=== PATIENT | male | born 1945 | race Caucasian/White ===

== ENCOUNTER 2017-03-12 12:34 | Inpatient (IN) | payer OTHER ==
[2017-03-12 12:34] VITALS: BMI 34.7
[2017-03-12 13:21] LABS: BASO % 0.8 % (0.0-2.0); EOS % 0.6 % (0.0-4.0); HEMATOCRIT 46.4 % (35.0-51.0); LYMPH # 1.3 K/uL (1.0-4.3); LYMPH % 23.8 % (20.0-40.0); MEAN CELL VOLUME 91.9 fL (80.0-94.0); MEAN CORPUSCULAR HEMOGLOBIN 30.8 pg (27.0-31.0); MEAN CORPUSCULAR HGB CONC 33.5 g/dL (33.0-37.0); MONO # 0.5 K/uL (0.0-0.8); MONO % 9.8 % (0.0-10.0); NRBC % 0.1 % (0.0-2.0); RED CELL DISTRIBUTION WIDTH 13.7 % (11.5-14.5); WHITE BLOOD COUNT 5.3 K/uL (4.8-10.8)
--- NOTE | 2017-03-12 13:27 | C.PDOC ---
History Of Present Illness 71 year old male presents to the ED with complaints of "feeling off balance," states he has difficulty ambulating and decreased hearing in the right ear, numbness and tingling in the right arm, pain in the neck and upper back for approx one month. Patient denies facial droop, slurred speech, extremity weakness, SOB, chest pain, palpations, or visual changes. Patient swims regularly at a pool, and states he was recently treated for otitis externa. Time Seen by Provider: 03/12/17 12:48 Chief Complaint (Nursing): Lower Extremity Problem/Injury History Per: Patient History/Exam Limitations: no limitations Onset/Duration Of Symptoms: Persistent (1 month ) Current Symptoms Are (Timing): Still Present Severity: Moderate Recent travel outside of the [place]: No Past Medical History Reviewed: Historical Data, Nursing Documentation, Vital Signs Vital Signs: Last Vital Signs Temp 98 F 03/14/17 15:42 Pulse 76 03/14/17 15:42 Resp 20 03/14/17 15:42 BP 150/70 03/14/17 15:42 Pulse Ox 100 03/14/17 15:42 - Medical History PMH: Arthritis (MILD ARTHRITIS), Benign Prostatic Hyperplasia, Gall Bladder Disease (CHOLELIATHIASIS), HTN, Kidney Stones Surgical History: Cholecystectomy, Tonsillectomy - [facility] Procedures CONTROL POSTOP PROST HEM (06/23/13) CYSTOGRAM NEC (06/23/13) CYSTOSCOPY NEC (06/23/13) INCISION OF PROSTATE (10/28/14) INSERT INDWELLING CATH (06/08/13) LAPAROSCOPIC CHOLECYSTECTOMY (07/25/14) OTHER LAPAROSCOPIC UMBILICAL HERNIORRHAPHY (07/25/14) OTHER SUPRAPUBIC CYSTOSTOMY (06/28/13) PACKED CELL TRANSFUSION (06/28/13) RETROGRADE PYELOGRAM (10/28/14) SUPRAPUBIC PROSTATECTOMY (06/28/13) TU BLADDER CLEARANCE (06/23/13) Family History: States: No Known Family Hx - Social History Hx Tobacco Use: No Hx Alcohol Use: No Hx Substance Use: No - Immunization History Hx Tetanus Toxoid Vaccination: No Hx Influenza Vaccination: No Hx Pneumococcal Vaccination: No Review Of Systems Except As Marked, All Systems Reviewed And Found Negative. Constitutional: Positive for: Other (feels off balance and difficulty ambulating ). Negative for: Fever, Chills Eyes: Negative for: Vision Change ENT: Positive for: Other (decreased hearing in the right ear ) Cardiovascular: Negative for: Chest Pain, Palpitations Respiratory: Negative for: Cough, Shortness of Breath Gastrointestinal: Negative for: Nausea, Vomiting, Abdominal Pain Genitourinary: Negative for: Dysuria Musculoskeletal: Positive for: Neck Pain, Back Pain (upper back pain ) Neurological: Positive for: Numbness (and tingling in the right arm ). Negative for: Weakness (no weakness of the extremities ), Altered Mental Status , Headache Physical Exam - Physical Exam Appears: Well, Non-toxic, No Acute Distress Skin: Warm, Dry Head: Atraumatic, Normacephalic Eye(s): bilateral: Normal Inspection (no nystagmus), PERRL, EOMI Ear(s): Left: Normal, Right: Other (White exudate in the canal. No swelling or erythema. no mastoid TTP) Nose: Normal Oral Mucosa: Moist Throat: Normal, No Erythema, No Exudate, No Drooling Neck: Midline Cervical Tenderness (lower midline cervical tenderness at approx C6-T2 ) Chest: Symmetrical, No Deformity Cardiovascular: Rhythm Regular, No Murmur Respiratory: Normal Breath Sounds, No Rales, No Rhonchi, No Wheezing Gastrointestinal/Abdominal: Normal Exam, Bowel Sounds, Soft, No Tenderness Back: Vertebral Tenderness (thoracic tenderness from approx C6-T2) Extremity: No Tenderness, No Calf Tenderness, Capillary Refill (< 2 sec all digits ), No Deformity, No Swelling Extremity: Bilateral: Atraumatic, Normal ROM Neurological/Psych: Oriented x3, Normal Speech, Normal Cognition, Normal Cranial Nerves, No Cerebellar Signs, Normal Motor, No Normal Sensation ( subjectively decreased sensation in the right hand and arm ), No Dysarthria, No Romberg Gait: Unsteady (ataxia) ED Course And Treatment - Laboratory Results Result Diagrams: 03/13/17 07:30 03/13/17 07:30 ECG: Interpreted By Me, Viewed By Me ECG Rhythm: Sinus Rhythm ECG Interpretation: Abnormal Interpretation Of ECG: Left axis deviation. T-wave inversion at II, III, AVL , AVF, V2-V6. No ST-T wave changes. Rate From EC (bpm) O2 Sat by Pulse Oximetry: 98 (room air ) Pulse Ox Interpretation: Normal - CT Scan/US Head CT W/O contrast Other Rad Studies (CT/US): Read By Radiologist, Radiology Report Reviewed CT/US Interpretation: FINDINGS: HEMORRHAGE: No intracranial hemorrhage. BRAIN : No mass effect or edema. No significant atrophy. Patchy and confluent deep white matter lucency with mild periventricular white matter lucency consistent with age-related microvascular ischemic change. No evidence of acute infarct. VENTRICLES: Unremarkable. No hydrocephalus. CALVARIUM: Unremarkable. PARANASAL SINUSES: Mild chronic bilateral maxillary sinusitis. MASTOID AIR CELLS: Nonspecific left mastoid effusion. OTHER FINDINGS: None. IMPRESSION: No intracranial mass, hemorrhage or evidence of acute infarct. Chronic white matter ischemic change. Nonspecific left mastoid effusion. Progress Note: Blood work, EKG, Head CT ordered and reviewed. Patient was given PO Tylenol and Flexeril. CT head (-) - PO ASA given for possible CVA. MRI of brain ordered to evaluate for posterior CVA vs mastoiditis. Ofloxacin drops ordered for mild otitis externa, and IV zosyn ordered to cover for possible mastoiditis. - Physician Consult Information Physician Contacted: Shreya Sabillon Outcome Of Conversation: Discussed patent with hospitalist, agrees with admission for ataxia, mastoiditis. Dr. Soares consult entered for ENT. NIHSS Stroke Scale - Date/Time Evaluation Performed Date Performed: 03/12/17 Time Performed: 12:47 When Was NIHSS Performed: Baseline - How Severe is the Stoke Level of Consciousness: 0=Alert LOC to Questions: 1=One correct LOC to commands: 0=Obeys both correctly Best Gaze: 0=Normal Visual: 0=No visual loss Facial: 0=Normal Motor Arm - Left: 0=No drift Motor Arm - Right: 0=No drift Motor Leg - Left: 0=No drift Motor Leg - Right: 0=No drift Limb Ataxia: 1=Present Upper or Lower Sensory: 1=Mild to moderate loss (RUE) Best Language: 0=No aphasia Dysarthia: 0=Normal articulation Extinction & Inattention (Neglect): 0=Normal, no object Score: 3 Severity Of Stroke: 1-4= Minor Stroke rTPA Inclusion/Exclusion - Refusal of Treatment Patient Refused Treatment: No - Inclusion Criteria for Altepase Patient is 18 years or Older: Yes The Clinical Diagnosis of Ischemic Stroke That is Causing a Potentially Disabling Neurological Deficit: Yes Time of Onset is Well Established to be Less Than 270 Minute Before Treatment Would Begin: No Risk/Benefit Discussed With Patient/Family Member Present: No Medical Decision Making Medical Decision Making: differential diagnoses considered: CVA/TIA, mastoiditis, demyelinating disease, NPH, brain malignancy/CA, medication side effect, substance abuse Disposition - Disposition Disposition: HOSPITALIZED Disposition Time: 15:53 Condition: STABLE - Clinical Impression Clinical Impression: Mastoiditis, Ataxia - Scribe Statement The provider has reviewed the documentation as recorded by the Lavern Ness All medical record entries made by the Lavern were at my direction and personally dictated by me. I have reviewed the chart and agree that the record accurately reflects my personal performance of the history, physical exam, medical decision making, and the department course for this patient. I have also personally directed, reviewed, and agree with the discharge instructions and disposition.
[2017-03-12 13:29] LABS: CHLORIDE 106 mmol/L (98-107); SODIUM 142 mmol/L (132-148)
[2017-03-12 13:30] LABS: INR 1.1
[2017-03-12 13:31] LABS: CHOLESTEROL 142 mg/dL (0-199); GFR AFRICAN-AMERICAN > 60
[2017-03-12 13:32] LABS: ALB/GLOB RATIO 1.1 (1.0-2.1); ALKALINE PHOSPHATASE 80 U/L (38-126); ALT/SGPT 36 U/L (21-72); AST/SGOT 28 U/L (17-59); BILIRUBIN,TOTAL 0.7 mg/dL (0.2-1.3); BLOOD UREA NITROGEN 18 mg/dL (9-20); CALCIUM 10.1 mg/dl (8.6-10.4); CARBON DIOXIDE 27 mmol/L (22-30); GLUCOSE,RANDOM 102 mg/dL (75-110); TOTAL PROTEIN 6.9 g/dL (6.3-8.3)
--- NOTE | 2017-03-12 13:45 | CT ---
PROCEDURE: CT HEAD WITHOUT CONTRAST. HISTORY: ATAXIA, R/O CVA COMPARISON: None available. TECHNIQUE: Axial computed tomography images were obtained through the head/brain without intravenous contrast. Radiation dose: Total exam DLP = 1104.57 mGy-cm. This CT exam was performed using one or more of the following dose reduction techniques: Automated exposure control, adjustment of the mA and/or kV according to patient size, and/or use of iterative reconstruction technique. FINDINGS: HEMORRHAGE: No intracranial hemorrhage. BRAIN: No mass effect or edema. No significant atrophy. Patchy and confluent deep white matter lucency with mild periventricular white matter lucency consistent with age-related microvascular ischemic change. No evidence of acute infarct. VENTRICLES: Unremarkable. No hydrocephalus. CALVARIUM: Unremarkable. PARANASAL SINUSES: Mild chronic bilateral maxillary sinusitis. MASTOID AIR CELLS: Nonspecific left mastoid effusion. OTHER FINDINGS: None. IMPRESSION: No intracranial mass, hemorrhage or evidence of acute infarct. Chronic white matter ischemic change. Nonspecific left mastoid effusion.
--- NOTE | 2017-03-12 13:52 | RAD ---
HISTORY: POSSIBLE ADMISSION COMPARISON: 07/01/2014 FINDINGS: LUNGS: No infiltrate. Multiple calcified granulomata in left apex. PLEURA: No significant pleural effusion identified, no pneumothorax apparent. CARDIOVASCULAR: Normal. OSSEOUS STRUCTURES: No significant abnormalities. VISUALIZED UPPER ABDOMEN: Normal. OTHER FINDINGS: None. IMPRESSION: No acute infiltrate. Old granulomatous disease.
--- NOTE | 2017-03-12 15:38 | MRI ---
PROCEDURE: MRI BRAIN WITHOUT CONTRAST HISTORY: ataxia, r/o CVA COMPARISON: Comparison is made to the previous same-day CT of the head without contrast TECHNIQUE: Multiplanar, multisequence MR images of the brain were obtained without intravenous contrast enhancement. FINDINGS: HEMORRHAGE: None DWI: No evidence of an acute or early subacute infarction. BRAIN PARENCHYMA: No mass effect or edema. Mild atrophy. [id number] white matter changes suggestive but nonspecific for chronic microvascular ischemic disease. VENTRICLES: Unremarkable. No hydrocephalus. CRANIUM: Unremarkable. ORBITS: Grossly unremarkable. PARANASAL SINUSES/MASTOIDS: Bilateral mastoid effusion in noted suspicious for mastoiditis. Mild sinuses mucosal thickening. VASCULAR SYSTEM: Skull base flow voids intact. OTHER FINDINGS: None. IMPRESSION: No evidence of acute or subacute infarction. No evidence of intracranial hemorrhage mass lesion mass effect or midline shift. Mild atrophy [id number] chronic microvascular white matter ischemic changes. Bilateral mastoid effusion. Correlate clinically for mastoiditis.
[2017-03-12] MEDS ORDERED: Ofloxacin 0.3% Otic Soln AU STA (15:51)
[2017-03-12] MEDS ORDERED: Piperacillin/Tazobact 3.375 gm 100 ML IV STA (15:53)
[2017-03-12] MEDS ORDERED: Piperacillin/Tazobact 3.375 gm 100 ML IVPB ONE (16:05)
--- NOTE | 2017-03-12 17:31 | CP.PCM.HP ---
History of Present Illness - History of Present Illness History of Present Illness: This is a 71 yo male with past medical hx of HTN and BPH presenting with weakness on right side x 2 weeks. Patient has been experiencing numbness and weakness on right arm and right leg for past 2 weeks. This has never happened before. It was getting worse. Patient also began feeling problems with gait and walking today. He felt like he was losing his balance and he almost fell today, but he was able to steady himself. He denies urinary incontinence. He reports neck pain. He denies slurring of speech. He denies chest pain, fevers, chills, vomiting, diarrhea. He does not see a PMD. PMH: HTN, BPH PSH: cholecystectomy, sx to eye allergies: NKDA FH: HTN Meds: naproxen, lisinopril Social hx: No smoking. Social drinker. No drugs. Born in [place]. Present on Admission - Present on Admission Any Indicators Present on Admission: No History of DVT/PE: No History of Uncontrolled Diabetes: No Urinary Catheter: No Decubitus Ulcer Present: No Review of Systems - Review of Systems All systems: reviewed and no additional remarkable complaints except Review of Systems: negative except per HPI. Past Patient History - Infectious Disease Hx of Infectious Diseases: None - Tetanus Immunizations Tetanus Immunization: Unknown - Past Medical History & Family History Past Medical History?: Yes - Past Social History Smoking Status: Never Smoked Chewing Tobacco Use: No Cigar Use: No Alcohol: Social Drugs: Denies Home Situation {Lives}: Friends Domestic Violence: Negative - CARDIAC Hx Hypertension: Yes - PULMONARY Hx Respiratory Disorders: No - NEUROLOGICAL Hx Neurological Disorder: No - HEENT Hx HEENT Problems: No - RENAL Hx Kidney Stones: Yes - ENDOCRINE/METABOLIC Hx Endocrine Disorders: No - HEMATOLOGICAL/ONCOLOGICAL Hx Blood Disorders: No - INTEGUMENTARY Hx Dermatological Problems: No - MUSCULOSKELETAL/RHEUMATOLOGICAL Hx Arthritis: Yes (MILD ARTHRITIS) - GASTROINTESTINAL Hx Gall Bladder Disease: Yes (CHOLELIATHIASIS) - GENITOURINARY/GYNECOLOGICAL Hx Genitourinary Disorders: Yes (BPH) Hx Prostate Problems: Yes - PSYCHIATRIC Hx Substance Use: No - SURGICAL HISTORY Hx Cholecystectomy: Yes Hx Tonsillectomy: Yes - ANESTHESIA Hx Anesthesia: Yes Hx Anesthesia Reactions: No Hx Malignant Hyperthermia: No Meds Allergies/Adverse Reactions: Allergies Allergy/AdvReac Type Severity Reaction Status Date / Time No Known Allergies Allergy Verified 07/13/14 13:54 Physical Exam - Constitutional Appears: Non-toxic, No Acute Distress - Head Exam Head Exam: ATRAUMATIC, NORMAL INSPECTION, NORMOCEPHALIC - Eye Exam Eye Exam: EOMI - ENT Exam ENT Exam: Mucous Membranes Moist - Neck Exam Neck exam: Positive for: Normal Inspection - Respiratory Exam Respiratory Exam: Clear to Auscultation Bilateral, NORMAL BREATHING PATTERN. absent: Accessory Muscle Use, Respiratory Distress - Cardiovascular Exam Cardiovascular Exam: REGULAR RHYTHM, +S1, +S2 - GI/Abdominal Exam GI & Abdominal Exam: Normal Bowel Sounds, Soft. absent: Tenderness - Extremities Exam Extremities exam: Positive for: full ROM, normal inspection - Back Exam Back exam: NORMAL INSPECTION - Neurological Exam Neurological exam: Abnormal Gait, Alert, CN II-XII Intact, Oriented x3 Additional comments: Muscles strength 5/5 both upper and lower ext, no facial asymmetry, no dysmetria or dysdiadokinesia - Psychiatric Exam Psychiatric exam: Normal Affect, Normal Mood - Skin Skin Exam: Dry, Intact, Normal Color, Warm Results - Vital Signs Recent Vital Signs: Last Vital Signs Temp 97.9 F 03/12/17 17:16 Pulse 60 03/12/17 17:16 Resp 20 03/12/17 17:16 BP 168/98 H 03/12/17 12:40 Pulse Ox 99 03/12/17 17:16 - Labs Result Diagrams: 03/12/17 13:09 03/12/17 13:09 Assessment & Plan - Assessment and Plan (Free Text) Assessment: This is a 71 yo male with past medical hx of HTN and BPH presenting with neck pain and weakness and numbness right sided 1. Gait disturbance/weakness -we will get ct scan cervical spine -pt eval -neurology consult. recs appreciated -neurochecks -asa 81 daily -statin daily -check lipid panel in morning -will check vitamin b12 -will check rpr -ct scan head negative for bleed 2. B/L sinusitis/ r/o mastoiditis on ct -will consult ent Dr. Soares. recs appreciated -ofloxacin ear drops daily 3. HTN hold htn meds for now 4. GI/DVT heparin 5000 q [address] Barrett.
[2017-03-12] MEDS ORDERED: Ofloxacin 0.3% Otic Soln AU SCH (18:00)
--- NOTE | 2017-03-12 18:38 | CT ---
PROCEDURE: CT scan cervical spine dated 03/12/2017 HISTORY: < rule out spinal cord lesion. COMPARISON: No prior study available for comparison however correlation was made with MRI of the brain obtained earlier same day which partially image the upper cervical spinal cord pain sagittal T1 and FLAIR sequence. TECHNIQUE: Multiple helical/transaxial computed tomography images were obtained of the cervical spine without the use of intravenous contrast. Coronal and sagittal reformatted images were created and reviewed. Radiation dose: Total exam DLP = 669.1 mGy-cm. This CT exam was performed using one or more of the following dose reduction techniques: Automated exposure control, adjustment of the mA and/or kV according to patient size, and/or use of iterative reconstruction technique. FINDINGS: VERTEBRAE: Current study reveals no acute compression fractures nor retropulsed fragments. . Vertebral bodies exhibit relatively normal stature. Mild straightening of the normal cervical lordosis which may in part be due to patient positioning gantry however underlying element of muscle spasm may contribute. Vertebral bodies otherwise exhibit normal alignment. Facets normally aligned. DISCS/SPINAL CANAL/NEURAL FORAMINA: At the C2-C3 level, intradiscal calcification with what appears represent partial fusion of the C2 and C3 vertebral body segments. Minimal broad-based disc bulge ridge complex contiguous with slightly overgrown uncovertebral joints. Facets are hypertrophic left greater than right. Changes appear minimally flatten the ventral surface of the thecal sac. Central canal appears marginal to adequate. Exit foramina appear narrowed bilaterally. At the C3-C4 level, there is relatively adequate disc height. Small irregular disc bulge ridge complex contiguous with hypertrophic uncovertebral joints. Facets also quite hypertrophic right greater than left. The changes result mild central canal narrowing and mild cord compression. The exit foramina appear stenotic bilaterally. At the C4-C5 level, there is mild disc space narrowing mild disc space narrowing. . Small central and bilateral focal disc bulge with slightly overgrown uncovertebral joints noted. Facets are hypertrophic right greater than left. Changes result in mild central canal narrowing and mild cord compression. Exit foramina are stenotic bilaterally. At the C5-C6 level, there is disc space narrowing with small disc ridge complex contiguous with hypertrophic uncovertebral joints. Facets also hypertrophic. Central canal and exit foramina are stenotic. Similar changes seen at the C6-C7 level. Degenerative spondylosis also noted in the upper thoracic region. Follow-up MRI of the cervical spine could be performed for further evaluation. Prevertebral and paraspinal soft tissues unremarkable. The incidental note is made of a short retropharyngeal course of the right and left common carotid arteries and bifurcations which project into the on posterolateral margins of the rowdy pharyngeal airway reducing the caliber of the airway at this level. Lung apices are free of focal consolidation or pneumothorax. Note made of a mildly enlarged thyroid gland. Consider thyroid ultrasound. Note made of what appears represent dilatation of the proximal descending thoracic aorta. Consider follow-up CT scan of the chest for further evaluation Impression: No acute compression fractures no retropulsed fragments. Mild straightening of the normal cervical lordosis as above. Mild multilevel degenerative spondylosis with varying degrees of mild canal narrowing and flattening of the cord as well as bilateral foraminal stenosis. See above discussion for additional findings common details and recommendations.
[2017-03-12] MEDS: Amoxicillin-Clav 875-125 mg Tab PO SCH (19:32)
--- NOTE | 2017-03-12 19:52 | CP.PCM.CON ---
History of Present Illness - History of Present Illness History of Present Illness: Mr. Bella is a 71-year-old man with a past medical history of cervical spine disease (s/p partial fusion), HTN (uncontrolled), HLD, who states that he has had progressive weakness that is worse on the right arm/leg and now has been having more difficulty with gait and balance. MRI of the brain did not show any acute findings, but he had significant periventricular white matter disease that also involved the corpus callosum. He denies visual changes, admits to slight headache and neck pain, does not have significant sensory changes, but says that he cannot feel his feet as well as before. There were no other associated symptoms. Review of Systems - Review of Systems All systems: reviewed and no additional remarkable complaints except Past Patient History - Infectious Disease Hx of Infectious Diseases: None - Tetanus Immunizations Tetanus Immunization: Unknown - Past Medical History & Family History Past Medical History?: Yes - Past Social History Smoking Status: Never Smoked Chewing Tobacco Use: No Cigar Use: No Alcohol: Social Drugs: Denies Home Situation {Lives}: Friends Domestic Violence: Negative - CARDIAC Hx Hypertension: Yes - PULMONARY Hx Respiratory Disorders: No - NEUROLOGICAL Hx Neurological Disorder: No - HEENT Hx HEENT Problems: No - RENAL Hx Kidney Stones: Yes - ENDOCRINE/METABOLIC Hx Endocrine Disorders: No - HEMATOLOGICAL/ONCOLOGICAL Hx Blood Disorders: No - INTEGUMENTARY Hx Dermatological Problems: No - MUSCULOSKELETAL/RHEUMATOLOGICAL Hx Arthritis: Yes (MILD ARTHRITIS) - GASTROINTESTINAL Hx Gall Bladder Disease: Yes (CHOLELIATHIASIS) - GENITOURINARY/GYNECOLOGICAL Hx Genitourinary Disorders: Yes (BPH) Hx Prostate Problems: Yes - PSYCHIATRIC Hx Substance Use: No - SURGICAL HISTORY Hx Cholecystectomy: Yes Hx Tonsillectomy: Yes - ANESTHESIA Hx Anesthesia: Yes Hx Anesthesia Reactions: No Hx Malignant Hyperthermia: No Meds Allergies/Adverse Reactions: Allergies Allergy/AdvReac Type Severity Reaction Status Date / Time No Known Allergies Allergy Verified 07/13/14 13:54 - Medications Medications: Current Medications Amoxicillin/Clavulanate Potassium (Augmentin 875 Mg-125 Mg Tab) 1 tab PO Q12H [facility] Last Admin: 03/12/17 19:32 Dose: 1 tab Aspirin (Aspirin Chewable) 81 mg PO DAILY [facility] Heparin Sodium (Porcine) (Heparin) 5,000 units SC Q8 [facility] Hydrochlorothiazide (Hydrodiuril) 25 mg PO BID [facility] Last Admin: 03/12/17 19:32 Dose: 25 mg Lisinopril (Zestril) 20 mg PO BID [facility] Last Admin: 03/12/17 19:32 Dose: 20 mg Metoprolol Tartrate (Lopressor) 25 mg PO BID [facility] Last Admin: 03/12/17 19:32 Dose: 25 mg Ofloxacin (Floxin 0.3% Otic Soln) 0 ml AU BID [facility] Last Admin: 03/12/17 18:36 Dose: 10 drop Pantoprazole Sodium (Protonix Inj) 40 mg IVP DAILY [facility] Rosuvastatin Calcium (Crestor) 10 mg PO HS [facility] Physical Exam - Constitutional Appears: Well - Head Exam Head Exam: ATRAUMATIC, NORMAL INSPECTION, NORMOCEPHALIC - Eye Exam Eye Exam: EOMI, Normal appearance, PERRL Pupil Exam: NORMAL ACCOMODATION, PERRL - ENT Exam ENT Exam: Mucous Membranes Moist, Normal Exam - Neck Exam Neck exam: Positive for: Tenderness - Respiratory Exam Respiratory Exam: Clear to Auscultation Bilateral, NORMAL BREATHING PATTERN - Cardiovascular Exam Cardiovascular Exam: REGULAR RHYTHM, +S1, +S2 - GI/Abdominal Exam GI & Abdominal Exam: Normal Bowel Sounds, Soft. absent: Tenderness - Rectal Exam Rectal Exam: Deferred - Extremities Exam Extremities exam: Positive for: normal inspection - Neurological Exam Neurological exam: Abnormal Gait, Alert, CN II-XII Intact, Oriented x3, Reflexes Normal - Expanded Neurological Exam Expanded Patient oriented to: person, place, time Ataxia: No Cerebellar Function: Finger to Nose: Normal, Heel to [place]: Normal Upper motor neuron: Babinski Sign: Normal Sensory exam: Lower Extremity Light Touch: Normal, Lower Extremity Pin Prick: Normal, Lower Extremity Temperature: Normal, Upper Extremity Light Touch: Normal , Upper Extremity Pin Prick: Normal, Upper Extremity Temperature: Normal Neuro motor strength exam: Left Upper Extremity: 5, Right Upper Extremity: 5 ( 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 However, he does have difficulty with ambulation and has a wide based gait. His MRI of the brain is concerning for either white matter disease or demyelinating disease considering the involvement of the corpus callosum. I would like to obtain an MRI of the brain WITH and without contrast as well as an MRI of the cervical spine WITH and without contrast to evaluate for acute inflammatory lesions. Continue aspirin 81 mg daily, continue Crestor, and give adequate hydration with NS at 100 mL/hr to ensure cerebral perfusion. His symptoms have been ongoing for two weeks, so permissive hypertension is not necessary. He will need good BP control to avoid further hypertensive injury to his subcortical tissue. Thank you. Status: Acute Priority: Medium
[2017-03-12 22:22] VITALS: RESP 20
[2017-03-13] MEDS: Amoxicillin-Clav 875-125 mg Tab PO SCH ×2 (06:00→18:46)
--- NOTE | 2017-03-13 07:44 | CP.PCM.PN ---
<Jacquelyn Clements - Last Filed: 03/13/17 17:46> Subjective - Date & Time of Evaluation Date of Evaluation: 03/13/17 Time of Evaluation: 09:30 - Subjective Subjective: Medicine Progress Note: Patient was seen and examined at bedside in the AM. Patient states that for the past two weeks he has been having dizziness and feels like he has been losing his balance. Patient states he continues to have right upper extremity pain and pain in the back of his neck. Patient denies any other complaints at this time. Objective - Vital Signs/Intake and Output Vital Signs (last 24 hours): Temp Pulse Resp BP Pulse Ox 98.3 F 48 L 20 157/86 H 96 03/12/17 23:25 03/13/17 01:00 03/12/17 23:25 03/12/17 23:25 03/12/17 23:25 - Medications Medications: Current Medications Amlodipine Besylate (Norvasc) 5 mg PO DAILY [facility] Amoxicillin/Clavulanate Potassium (Augmentin 875 Mg-125 Mg Tab) 1 tab PO Q12H [facility] Last Admin: 03/13/17 06:00 Dose: 1 tab Aspirin (Aspirin Chewable) 81 mg PO DAILY [facility] Heparin Sodium (Porcine) (Heparin) 5,000 units SC Q8 [facility] Last Admin: 03/13/17 05:59 Dose: 5,000 units Hydrochlorothiazide (Hydrodiuril) 25 mg PO BID [facility] Last Admin: 03/12/17 19:32 Dose: 25 mg Lisinopril (Zestril) 20 mg PO BID [facility] Last Admin: 03/12/17 19:32 Dose: 20 mg Metoprolol Tartrate (Lopressor) 25 mg PO BID [facility] Last Admin: 03/12/17 19:32 Dose: 25 mg Ofloxacin (Floxin 0.3% Otic Soln) 0 ml AU BID [facility] Last Admin: 03/12/17 18:36 Dose: 10 drop Pantoprazole Sodium (Protonix Inj) 40 mg IVP DAILY [facility] Rosuvastatin Calcium (Crestor) 10 mg PO HS [facility] Last Admin: 03/12/17 22:04 Dose: 10 mg - Labs Labs: PT 12.1 SECONDS (9.7-12.2) 03/12/17 13:09 INR 1.1 03/12/17 13:09 APTT 27 SECONDS (21-34) 03/12/17 13:09 - Constitutional Appears: Well, Non-toxic, No Acute Distress - Head Exam Head Exam: ATRAUMATIC, NORMAL INSPECTION, NORMOCEPHALIC - Eye Exam Eye Exam: EOMI, Normal appearance, PERRL Pupil Exam: NORMAL ACCOMODATION, PERRL - ENT Exam ENT Exam: Mucous Membranes Moist - Neck Exam Neck Exam: Tenderness - Respiratory Exam Respiratory Exam: Clear to Ausculation Bilateral, NORMAL BREATHING PATTERN - Cardiovascular Exam Cardiovascular Exam: REGULAR RHYTHM, RRR, +S1, +S2 - GI/Abdominal Exam GI & Abdominal Exam: Soft, Normal Bowel Sounds. absent: Tenderness - Extremities Exam Extremities Exam: Normal Inspection. absent: Pedal Edema, Tenderness - Neurological Exam Neurological Exam: Alert, Awake, Oriented x3 - Psychiatric Exam Psychiatric exam: Normal Affect - Skin Skin Exam: Normal Color, Warm Assessment and Plan - Assessment and Plan (Free Text) Plan: 1. Gait disturbance/weakness -Neurology consult: Dr. Marin --> help appreciated -neurochecks -Aspirin 81 daily -Statin daily -Norvasc 5mg daily -Lipid panel: cholesterol 136; LDL 91; HDL 91 -Vitamin B12: 465 -RPR: Nonreactive -CT scan Head: negative for bleed -Brain MRI: No abnormal intracranial enhancement is identified; age related neuro degenerative changes, no interval acute or subacute brain infarction -Cervical spine MRI: no disc herniation; multilevel stenosis including the bilateral neural foramina are very but a variable basis due to degenerative findings. - f/u EEG 2. B/L sinusitis/ r/o mastoiditis on ct -Consult ENT: Dr. Soares --> help appreciated -ofloxacin ear drops daily -Per ENT: Augmentin for 10 days and follow up as an outpatient 3. HTN hold htn meds for now 4. GI/DVT heparin 5000 q 8 protonix daily PT eval and treat: Home physical therapy Case discussed with Dr. Bal Clements PGY-1 <Filiberto Selby - Last Filed: 03/13/17 18:43> Objective - Vital Signs/Intake and Output Vital Signs (last 24 hours): Temp Pulse Resp BP Pulse Ox 98.2 F 67 20 116/76 95 03/13/17 15:07 03/13/17 15:07 03/13/17 15:07 03/13/17 15:07 03/13/17 15:07 Intake and Output: 03/13/17 03/13/17 06:59 18:59 Intake Total 100 Balance 100 - Medications Medications: Current Medications Amlodipine Besylate (Norvasc) 5 mg PO DAILY [facility] Last Admin: 03/13/17 11:04 Dose: 5 mg Amoxicillin/Clavulanate Potassium (Augmentin 875 Mg-125 Mg Tab) 1 tab PO Q12H [facility] Last Admin: 03/13/17 06:00 Dose: 1 tab Aspirin (Aspirin Chewable) 81 mg PO DAILY [facility] Last Admin: 03/13/17 11:04 Dose: 81 mg Heparin Sodium (Porcine) (Heparin) 5,000 units SC Q8 [facility] Last Admin: 03/13/17 13:46 Dose: 5,000 units Hydrochlorothiazide (Hydrodiuril) 25 mg PO BID [facility] Last Admin: 03/13/17 11:04 Dose: 25 mg Lisinopril (Zestril) 20 mg PO BID [facility] Last Admin: 03/13/17 11:04 Dose: 20 mg Metoprolol Tartrate (Lopressor) 25 mg PO BID [facility] Last Admin: 03/13/17 11:04 Dose: 25 mg Ofloxacin (Floxin 0.3% Otic Soln) 0 ml AU BID [facility] Last Admin: 03/12/17 18:36 Dose: 10 drop Pantoprazole Sodium (Protonix Inj) 40 mg IVP DAILY [facility] Last Admin: 03/13/17 11:08 Dose: 40 mg Rosuvastatin Calcium (Crestor) 10 mg PO HS [facility] Last Admin: 03/12/17 22:04 Dose: 10 mg - Labs Labs: 03/13/17 07:30 03/13/17 07:30 PT 12.1 SECONDS (9.7-12.2) 03/12/17 13:09 INR 1.1 03/12/17 13:09 APTT 27 SECONDS (21-34) 03/12/17 13:09 Attending/Attestation - Attestation I have personally seen and examined this patient.: Yes I have fully participated in the care of the patient.: Yes I have reviewed all pertinent clinical information, including history, physical exam and plan: Yes Notes (Text): 03/13/17 18:42 Patient was seen and examined at bedside with the resident Patient states that the dizziness is improved ENT evaluation seen and appreciated. Continue Augmentin for mastoiditis as per recommendations of the ENT. Neurology workup is in progress Patient to continue physical therapy. I discussed the plan of care with the resident and agree with the assessment and plan documented by the resident
[2017-03-13 07:48] LABS: BASO # 0.1 K/uL (0.0-0.2); EOS # 0.1 K/uL (0.0-0.7); HEMATOCRIT 44.8 % (35.0-51.0); LYMPH # 1.4 K/uL (1.0-4.3); MEAN CELL VOLUME 92.8 fL (80.0-94.0); MEAN CORPUSCULAR HEMOGLOBIN 30.9 pg (27.0-31.0); MEAN CORPUSCULAR HGB CONC 33.2 g/dL (33.0-37.0); MEAN PLATELET VOLUME 10.6 fL (7.2-11.7); MONO # 0.5 K/uL (0.0-0.8); MONO % 8.7 % (0.0-10.0); WHITE BLOOD COUNT 5.3 K/uL (4.8-10.8)
[2017-03-13 07:56] LABS: CHLORIDE 103 mmol/L (98-107)
[2017-03-13 07:58] LABS: ALB/GLOB RATIO 1.1 (1.0-2.1); ALKALINE PHOSPHATASE 69 U/L (38-126); AST/SGOT 23 U/L (17-59); BILIRUBIN,TOTAL 0.7 mg/dL (0.2-1.3); BLOOD UREA NITROGEN 15 mg/dL (9-20); CARBON DIOXIDE 28 mmol/L (22-30); CHOLESTEROL 136 mg/dL (0-199); GFR AFRICAN-AMERICAN > 60; GLUCOSE,RANDOM 92 mg/dL (75-110); TOTAL PROTEIN 6.3 g/dL (6.3-8.3)
[2017-03-13 07:59] LABS: ALT/SGPT 34 U/L (21-72); CALCIUM 9.6 mg/dl (8.6-10.4); PHOSPHOROUS 3.5 mg/dL (2.5-4.5)
[2017-03-13 08:02] LABS: POTASSIUM 3.7 mmol/L (3.6-5.2); SODIUM 141 mmol/L (132-148)
[2017-03-13] MEDS ORDERED: Gadodiamide 287 mg/ml 20 ml IV ONE (09:37)
--- NOTE | 2017-03-13 10:50 | MRI ---
PROCEDURE: MRI BRAIN WITH AND WITHOUT CONTRAST HISTORY: rule out demyelinating disease COMPARISON: Unenhanced brain MRI 03/12/2017 as well as unenhanced head CT 03/12/2017 is. TECHNIQUE: Multiplanar, multisequence MR images of the brain were obtained with and without intravenous contrast enhancement. FINDINGS: HEMORRHAGE: None DWI: No evidence of an acute or early subacute infarction. BRAIN PARENCHYMA: Chronic microangiopathy and mild diffuse cerebral atrophy are reiterated the current examination as seen the prior brain MRI 03/12/2017. There is no interval acute or subacute brain infarction and there remains no mass effect or hydrocephalus. No suspicious extra-axial collection. Following intravenous gadolinium in addition, the enhancement diffusely within normal limits throughout. No suspicious intra or extra-axial enhancement. ENHANCEMENT: No abnormal intracranial enhancement. VENTRICLES: Unremarkable. No hydrocephalus. CRANIUM: Unremarkable. ORBITS: Grossly unremarkable. PARANASAL SINUSES/MASTOIDS: Bilateral mastoiditis somewhat greater the left and right sides. VASCULAR SYSTEM: Skull base flow voids intact. OTHER FINDINGS: None . IMPRESSION: 1. No abnormal intracranial enhancement is identified above or below the tentorium. 2. Age related neuro degenerative changes are reiterated. 3. No interval acute or subacute brain infarction.
--- NOTE | 2017-03-13 11:08 | MRI ---
PROCEDURE: MR CERVICAL SPINE WITH AND WITHOUT CONTRAST HISTORY: rule out demyelinating disease COMPARISON: None available. TECHNIQUE: Multiecho multiplanar sequences were performed through the cervical spine with and without the use of intravenous contrast. FINDINGS: Normal lordotic curvature. Craniocervical junction unremarkable. Vertebral body heights preserved. Diffuse disc desiccation is appreciated throughout. Trace increased signal is questioned in the right C4-5 cord level. No paraspinal abnormality. No abnormal enhancement C2-3: No disc herniation, spinal canal stenosis or neural foraminal narrowing. C3-4: No disc herniation identified however a very mild generalized disc bulge encroaching the ventral nerve roots with a mild stenosis noted here. Severe right and mild left degenerative neural foraminal stenoses are identified based on facet and uncovertebral joint arthropathy. C4-5: A definite disc herniation is identified here however generalized disc bulge results in moderate central canal stenosis with borderline right cord reactive signal change. The ventral cervical cord is flattened. Osteophytic changes results in severe right and [id number] left neural foraminal stenosis. Disc bulge contributes to these findings. C5-C6: No disc herniation identified however generalized disc osteophyte complex identified resulting in mild central canal stenosis. Added osteophytes results in mild left and moderate right neural foraminal stenoses. C6-C7: Additional disc osteophyte complex is appreciate without disc herniation resulting in a mild central canal stenosis. Severe bilateral neural foraminal stenoses are appreciated primarily the due to facet and uncovertebral joint arthropathy C7-T1: There is no disc herniation or significant central canal or neural foraminal stenosis although facet arthropathy appears mild to moderate. OTHER FINDINGS: No abnormal intrathecal or epidural enhancement however. IMPRESSION: There is no disc herniation appreciated throughout the cervical spine. Multilevel spinal stenosis appreciated including the bilateral neural foramina are very but a variable basis due to degenerative findings noted above. Findings appreciated worst at the C 4-5 level where moderate central canal stenosis results with borderline reactive right bree cord signal change appreciated. No abnormal enhancement identified nevertheless.
--- NOTE | 2017-03-13 12:13 | CP.PCM.PN ---
Subjective - Date & Time of Evaluation Date of Evaluation: 03/13/17 Time of Evaluation: 10:00 - Subjective Subjective: see below Objective - Vital Signs/Intake and Output Vital Signs (last 24 hours): Temp Pulse Resp BP Pulse Ox 97.9 F 62 20 150/93 H 96 03/13/17 07:00 03/13/17 08:54 03/13/17 07:00 03/13/17 11:04 03/13/17 07:00 - Medications Medications: Current Medications Amlodipine Besylate (Norvasc) 5 mg PO DAILY [facility] Last Admin: 03/13/17 11:04 Dose: 5 mg Amoxicillin/Clavulanate Potassium (Augmentin 875 Mg-125 Mg Tab) 1 tab PO Q12H [facility] Last Admin: 03/13/17 06:00 Dose: 1 tab Aspirin (Aspirin Chewable) 81 mg PO DAILY [facility] Last Admin: 03/13/17 11:04 Dose: 81 mg Heparin Sodium (Porcine) (Heparin) 5,000 units SC Q8 [facility] Last Admin: 03/13/17 05:59 Dose: 5,000 units Hydrochlorothiazide (Hydrodiuril) 25 mg PO BID [facility] Last Admin: 03/13/17 11:04 Dose: 25 mg Lisinopril (Zestril) 20 mg PO BID [facility] Last Admin: 03/13/17 11:04 Dose: 20 mg Metoprolol Tartrate (Lopressor) 25 mg PO BID [facility] Last Admin: 03/13/17 11:04 Dose: 25 mg Ofloxacin (Floxin 0.3% Otic Soln) 0 ml AU BID [facility] Last Admin: 03/12/17 18:36 Dose: 10 drop Pantoprazole Sodium (Protonix Inj) 40 mg IVP DAILY [facility] Last Admin: 03/13/17 11:08 Dose: 40 mg Rosuvastatin Calcium (Crestor) 10 mg PO HS [facility] Last Admin: 03/12/17 22:04 Dose: 10 mg - Labs Labs: 03/13/17 07:30 03/13/17 07:30 PT 12.1 SECONDS (9.7-12.2) 03/12/17 13:09 INR 1.1 03/12/17 13:09 APTT 27 SECONDS (21-34) 03/12/17 13:09 Assessment and Plan - Assessment and Plan (Free Text) Assessment: ENT Consult History of Present Illness 71 y/o male with 2 weeks of dizziness/imbalance. no spinning. no ear pain. he feels better today. CT head showed partial opacification of both mastoids. Past Medical Hx HTN BPH Allergies NKDA Social Hx and Family Hx non-contributory Exam awake, alert, comfortable EOMI face symmetric oc/op clear neck soft no mastoid tenderness both ear canals and tympanic membranes are clear no erythema no middle ear fluid WBC 5.3 CT head: partial opacification of b/l mastoids with sclerosis Impression mastoid inflammation vs. fluid, incidental finding on imaging Recommend continue medical and neurologic work-up for dizziness augmentin for 10 days f/u with me as o/p d/w primary attending
--- NOTE | 2017-03-13 21:57 | CARD ---
APPROVED REPORT EKG Measurement Heart [id number] <Conclusion> Normal sinus rhythm Left axis deviation ST & T wave abnormality, consider anterolateral ischemia Abnormal ECG
[2017-03-14] MEDS: Amoxicillin-Clav 875-125 mg Tab PO SCH (06:52)
--- NOTE | 2017-03-14 13:49 | CP.PCM.DIS ---
<German Taylor - Last Filed: 03/14/17 16:00> Provider - Provider Date of Admission: 03/12/17 15:53 Attending physician: Filiberto Selby MD Primary care physician: Clinic Consults: Neuro: Tomas ENT: Raul Time Spent in preparation of Discharge (in minutes): 45 Hospital Course - Lab Results Lab Results: Most Recent Lab Values WBC 5.3 K/uL (4.8-10.8) 03/13/17 07:30 RBC 4.82 Mil/uL (4.40-5.90) 03/13/17 07:30 Hgb 14.9 g/dL (12.0-18.0) 03/13/17 07:30 Hct 44.8 % (35.0-51.0) 03/13/17 07:30 MCV 92.8 fL (80.0-94.0) 03/13/17 07:30 MCH 30.9 pg (27.0-31.0) 03/13/17 07:30 MCHC 33.2 g/dL (33.0-37.0) 03/13/17 07:30 RDW 14.0 % (11.5-14.5) 03/13/17 07:30 Plt Count 143 K/uL (130-400) 03/13/17 07:30 MPV 10.6 fL (7.2-11.7) 03/13/17 07:30 Neut % (Auto) 61.3 % (50.0-75.0) 03/13/17 07:30 Lymph % (Auto) 27.0 % (20.0-40.0) 03/13/17 07:30 Cassia % (Auto) 8.7 % (0.0-10.0) 03/13/17 07:30 Eos % (Auto) 2.0 % (0.0-4.0) 03/13/17 07:30 Baso % (Auto) 1.0 % (0.0-2.0) 03/13/17 07:30 Neut # 3.3 K/uL (1.8-7.0) 03/13/17 07:30 Lymph # 1.4 K/uL (1.0-4.3) 03/13/17 07:30 Cassia # 0.5 K/uL (0.0-0.8) 03/13/17 07:30 Eos # 0.1 K/uL (0.0-0.7) 03/13/17 07:30 Baso # 0.1 K/uL (0.0-0.2) 03/13/17 07:30 PT 12.1 SECONDS (9.7-12.2) 03/12/17 13:09 INR 1.1 03/12/17 13:09 APTT 27 SECONDS (21-34) 03/12/17 13:09 Sodium 141 mmol/L (132-148) 03/13/17 07:30 Potassium 3.7 mmol/L (3.6-5.2) 03/13/17 07:30 Chloride 103 mmol/L (98-107) 03/13/17 07:30 Carbon Dioxide 28 mmol/L (22-30) 03/13/17 07:30 Anion Gap 14 (10-20) 03/13/17 07:30 BUN 15 mg/dL (9-20) 03/13/17 07:30 Creatinine 0.8 MG/DL (0.8-1.5) 03/13/17 07:30 Est GFR ( Amer) > 60 03/13/17 07:30 Est GFR (Non-Af Amer) > 60 03/13/17 07:30 Random Glucose 92 mg/dL (75-110) 03/13/17 07:30 Hemoglobin A1c 5.8 % (4.2-6.5) 03/12/17 13:09 Calcium 9.6 mg/dl (8.6-10.4) 03/13/17 07:30 Phosphorus 3.5 mg/dL (2.5-4.5) 03/13/17 07:30 Magnesium 2.0 mg/dL (1.6-2.3) 03/13/17 07:30 Total Bilirubin 0.7 mg/dL (0.2-1.3) 03/13/17 07:30 AST 23 U/L (17-59) 03/13/17 07:30 ALT 34 U/L (21-72) 03/13/17 07:30 Alkaline Phosphatase 69 U/L (38-126) 03/13/17 07:30 Troponin I < 0.0120 ng/mL (0.00-0.120) 03/12/17 13:09 Total Protein 6.3 g/dL (6.3-8.3) 03/13/17 07:30 Albumin 3.3 g/dL (3.5-5.0) L 03/13/17 07:30 Globulin 3.0 gm/dL (2.2-3.9) 03/13/17 07:30 Albumin/Globulin Ratio 1.1 (1.0-2.1) 03/13/17 07:30 Triglycerides 87 mg/dL (0-149) 03/13/17 07:30 Cholesterol 136 mg/dL (0-199) 03/13/17 07:30 LDL Cholesterol Direct 91 mg/dL (0-129) 03/13/17 07:30 HDL Cholesterol 40 mg/dL (30-70) 03/13/17 07:30 Vitamin B12 465 pg/mL (239-931) 03/12/17 19:49 RPR Nonreactive (NONREACTIVE) 03/12/17 19:49 - Hospital Course Hospital Course: On admission: This is a 71 yo male with past medical hx of HTN and BPH presenting with weakness on right side x 2 weeks. Patient has been experiencing numbness and weakness on right arm and right leg for past 2 weeks. This has never happened before. It was getting worse. Patient also began feeling problems with gait and walking today. He felt like he was losing his balance and he almost fell today, but he was able to steady himself. He denies urinary incontinence. He reports neck pain. He denies slurring of speech. He denies chest pain, fevers, chills, vomiting, diarrhea. He does not see a PMD. Patient presented to the Ed with complaints of "feeling of balance," difficulty ambulating, decreased hearing in the right ear, numbness and tingling in the right arm, pain in the neck and upper back for one month. A head CT was performed and showed a nonspecific left mastoid effusion. Dr. Marin was consulted and requested a MRI of the brain. It showed bilateral mastoid effusion correlated clinically for mastoiditis. A cervical CT was done and showed mild multilevel canal narrowing and flattening of the cord as well as bilateral foraminal stenosis most severe at c3-c4 . Studies revealed no significant changes from the last study. Patient is well appearing and in a happy mode at bedside.Dr. Carter was consulted for the mastoiditis and stated that the patient should follow up with him and be discharged on PO Augmentin. He will be discharged today. He will be give 10 days of antibiotics to take home and asked to f/u in the clinic and with an ENT as well as Dr. Marin. - Date & Time of H&P Date of H&P: 03/12/17 Time of H&P: 17:26 Discharge Exam - Head Exam Head Exam: ATRAUMATIC, NORMAL INSPECTION, NORMOCEPHALIC - Eye Exam Eye Exam: EOMI - ENT Exam ENT Exam: Mucous Membranes Moist - Respiratory Exam Respiratory Exam: NORMAL BREATHING PATTERN, UNREMARKABLE. absent: Rhonchi, Wheezes, Respiratory Distress, Stridor - Cardiovascular Exam Cardiovascular Exam: REGULAR RHYTHM, RRR. absent: Rubs - GI/Abdominal Exam GI & Abdominal Exam: Normal Bowel Sounds, Soft. absent: Distended, Tenderness - Neurological Exam Neurological exam: Alert, Oriented x3 - Psychiatric Exam Psychiatric exam: Normal Affect, Normal Mood - Skin Skin Exam: Dry, Intact, Normal Color, Warm Discharge Plan - Discharge Medications Prescriptions: Amoxicillin/Clavulanate [Augmentin 875 MG-125 MG Tab] 1 tab PO Q12H #20 tab Aspirin [Aspirin Chewable] 81 mg PO DAILY #30 Lisinopril [Zestril] 20 mg PO BID #60 tab Metoprolol Tartrate [Lopressor] 25 mg PO BID #60 tab - Follow Up Plan Condition: STABLE Disposition: HOME/ ROUTINE Instructions: Metoprolol (By mouth), Lisinopril (By mouth), Aspirin (By mouth) , Amoxicillin/Clavulanate Potassium (By mouth), Renal Colic (DC), Heart Healthy Diet (DC), Mastoiditis (DC) Additional Instructions: From a Neuro standpoint, patient is stable and clear for discharge. Please follow up with Dr. Marin in his office in one weeks time. Please call the office to make an appointment. From a ENT standpoint, patient is stable and clear for discharge. Please follow up with Dr. Carter in his office in one weeks time. Please call the office to make an appointment. From a medical standpoint, Patient is stable and clear for discharge. Please follow up in our clinic. Please call to make an appointment I have attached information for all the above facilities. Prescription instruction will be provided at discharge. If symptoms return, please come back to the ER. Referrals: Jorge Carter MD [Staff Provider] - <Filiberto Selby - Last Filed: 03/15/17 15:31> Provider - Provider Date of Admission: 03/12/17 15:53 Attending physician: Filiberto Selby MD Hospital Course - Lab Results Lab Results: Most Recent Lab Values WBC 5.3 K/uL (4.8-10.8) 03/13/17 07:30 RBC 4.82 Mil/uL (4.40-5.90) 03/13/17 07:30 Hgb 14.9 g/dL (12.0-18.0) 03/13/17 07:30 Hct 44.8 % (35.0-51.0) 03/13/17 07:30 MCV 92.8 fL (80.0-94.0) 03/13/17 07:30 MCH 30.9 pg (27.0-31.0) 03/13/17 07:30 MCHC 33.2 g/dL (33.0-37.0) 03/13/17 07:30 RDW 14.0 % (11.5-14.5) 03/13/17 07:30 Plt Count 143 K/uL (130-400) 03/13/17 07:30 MPV 10.6 fL (7.2-11.7) 03/13/17 07:30 Neut % (Auto) 61.3 % (50.0-75.0) 03/13/17 07:30 Lymph % (Auto) 27.0 % (20.0-40.0) 03/13/17 07:30 Cassia % (Auto) 8.7 % (0.0-10.0) 03/13/17 07:30 Eos % (Auto) 2.0 % (0.0-4.0) 03/13/17 07:30 Baso % (Auto) 1.0 % (0.0-2.0) 03/13/17 07:30 Neut # 3.3 K/uL (1.8-7.0) 03/13/17 07:30 Lymph # 1.4 K/uL (1.0-4.3) 03/13/17 07:30 Cassia # 0.5 K/uL (0.0-0.8) 03/13/17 07:30 Eos # 0.1 K/uL (0.0-0.7) 03/13/17 07:30 Baso # 0.1 K/uL (0.0-0.2) 03/13/17 07:30 PT 12.1 SECONDS (9.7-12.2) 03/12/17 13:09 INR 1.1 03/12/17 13:09 APTT 27 SECONDS (21-34) 03/12/17 13:09 Sodium 141 mmol/L (132-148) 03/13/17 07:30 Potassium 3.7 mmol/L (3.6-5.2) 03/13/17 07:30 Chloride 103 mmol/L (98-107) 03/13/17 07:30 Carbon Dioxide 28 mmol/L (22-30) 03/13/17 07:30 Anion Gap 14 (10-20) 03/13/17 07:30 BUN 15 mg/dL (9-20) 03/13/17 07:30 Creatinine 0.8 MG/DL (0.8-1.5) 03/13/17 07:30 Est GFR ( Amer) > 60 03/13/17 07:30 Est GFR (Non-Af Amer) > 60 03/13/17 07:30 Random Glucose 92 mg/dL (75-110) 03/13/17 07:30 Hemoglobin A1c 5.8 % (4.2-6.5) 03/12/17 13:09 Calcium 9.6 mg/dl (8.6-10.4) 03/13/17 07:30 Phosphorus 3.5 mg/dL (2.5-4.5) 03/13/17 07:30 Magnesium 2.0 mg/dL (1.6-2.3) 03/13/17 07:30 Total Bilirubin 0.7 mg/dL (0.2-1.3) 03/13/17 07:30 AST 23 U/L (17-59) 03/13/17 07:30 ALT 34 U/L (21-72) 03/13/17 07:30 Alkaline Phosphatase 69 U/L (38-126) 03/13/17 07:30 Troponin I < 0.0120 ng/mL (0.00-0.120) 03/12/17 13:09 Total Protein 6.3 g/dL (6.3-8.3) 03/13/17 07:30 Albumin 3.3 g/dL (3.5-5.0) L 03/13/17 07:30 Globulin 3.0 gm/dL (2.2-3.9) 03/13/17 07:30 Albumin/Globulin Ratio 1.1 (1.0-2.1) 03/13/17 07:30 Triglycerides 87 mg/dL (0-149) 03/13/17 07:30 Cholesterol 136 mg/dL (0-199) 03/13/17 07:30 LDL Cholesterol Direct 91 mg/dL (0-129) 03/13/17 07:30 HDL Cholesterol 40 mg/dL (30-70) 03/13/17 07:30 Vitamin B12 465 pg/mL (239-931) 03/12/17 19:49 RPR Nonreactive (NONREACTIVE) 03/12/17 19:49 Attending/Attestation - Attestation I have personally seen and examined this patient.: Yes I have fully participated in the care of the patient.: Yes I have reviewed all pertinent clinical information, including history, physical exam and plan: Yes Notes (Text): 03/15/17 15:30 Patient was seen and examined at bedside with the resident Patient stated that he is feeling better. Patient is able to ambulate without any difficulty Patient cleared for discharge by neurology. Prescriptions given to the patient to for the medications started during the hospital stay Patient also evaluated by ENT during his hospital stay and he was prescribed Augmentin upon discharge Patient will follow-up with ENT as outpatient Patient also follow-up with his PMD upon discharge I discussed the discharge plan with the patient in detail and I agree with the assessment and plan and the discharge note by the resident.
[2017-03-14 15:45] VITALS: BP 150/70; PULSE 76; TEMP 98
--- NOTE | 2017-03-14 16:09 | PCM.EEG ---
Electroencephalogram Report - Electroencephalogram Report Procedure Date: 03/13/17 Interpretation: This was an awake and asleep EEG performed to rule out seizures. The patient's medications were reviewed with the nurse. Technical: This is a digitally recorded electroencephalogram. The international 10-20 electrode placement system is used for scalp electrode placement. Sixteen channels of scalp EEG are recorded Another channel was used for for ECG. The data are stored digitally and reviewed in reformatted montages for optimal display. Background: 9 to 10 hertz alpha activity was seen. Maximal over the posterior head region. These activities are symmetric on both sides. They attenuated with eye opening. Small amount of beta activities are seen. Impression: Description: No focal slowing was seen. No seizure like activity was observed during this recording. Patient entered into periods of drowsiness and light sleep. No abnormality was seen. Impression: Normal EEG. No focal slowing no seizure like activity was observed.
[2017-03-14 18:18] VITALS: O2SAT 98
== END 2017-03-14 18:14 | disposition home or self-care (01) | DRG 464 ==
LOC: C.ER 12:34 → C.9E 15:53 → C.3T 17:05 → C.9E 18:26 → C.5T 18:33 → C.6T 03-13 13:30
PROVIDERS: ADMIT Hospitalist; ATTEND Internal Medicine
DX: R53.1 Weakness (principal); M48.02 Spinal stenosis, cervical region; R26.2 Difficulty in walking, not elsewhere classified; J32.0 Chronic maxillary sinusitis; H70.90 Unspecified mastoiditis, unspecified ear; R42 Dizziness and giddiness; I10 Essential (primary) hypertension; E78.5 Hyperlipidemia, unspecified; N40.0 Benign prostatic hyperplasia without lower urinary tract symptoms

== ENCOUNTER 2017-04-08 11:47 | Emergency (ER) | payer OTHER ==
[2017-04-08 11:48] VITALS: BMI 34.7
[2017-04-08 12:04] VITALS: RESP 18
--- NOTE | 2017-04-08 13:18 | C.PDOC ---
History Of Present Illness 71 yo male, hx of htn, presents with numbness, difficulty ambulating, body aches , he has had for last few weeks. pt states he has had "numbness to right side" for last few weeks, pt also reports now "numbness to left leg for last few days. noted pt had extended stay in hospital recently with similar. pt had mri, and ent and neuro eval. pt was d/c with augmentin and had neg mri. pt never filled his antibiotics and f/u outpt. no new trauma, fever, cough, urianry changes, or other complaints Time Seen by Provider: 04/08/17 13:03 Chief Complaint (Nursing): Weakness/Neurological Deficit Past Medical History Reviewed: Historical Data, Nursing Documentation, Vital Signs Vital Signs: Last Vital Signs Temp 98.2 F 04/08/17 17:52 Pulse 58 L 04/08/17 17:52 Resp 18 04/08/17 17:52 BP 158/78 H 04/08/17 17:52 Pulse Ox 99 04/08/17 17:52 - Medical History PMH: Arthritis (MILD ARTHRITIS), Benign Prostatic Hyperplasia, Gall Bladder Disease (CHOLELIATHIASIS), HTN, Kidney Stones, Chronic Kidney Disease Surgical History: Cholecystectomy, Tonsillectomy - [facility] Procedures CONTROL POSTOP PROST HEM (06/23/13) CYSTOGRAM NEC (06/23/13) CYSTOSCOPY NEC (06/23/13) INCISION OF PROSTATE (10/28/14) INSERT INDWELLING CATH (06/08/13) LAPAROSCOPIC CHOLECYSTECTOMY (07/25/14) OTHER LAPAROSCOPIC UMBILICAL HERNIORRHAPHY (07/25/14) OTHER SUPRAPUBIC CYSTOSTOMY (06/28/13) PACKED CELL TRANSFUSION (06/28/13) RETROGRADE PYELOGRAM (10/28/14) SUPRAPUBIC PROSTATECTOMY (06/28/13) TU BLADDER CLEARANCE (06/23/13) Family History: States: Unknown Family Hx - Social History Hx Tobacco Use: No Hx Alcohol Use: No Hx Substance Use: No - Immunization History Hx Tetanus Toxoid Vaccination: No Hx Influenza Vaccination: No Hx Pneumococcal Vaccination: No Review Of Systems Except As Marked, All Systems Reviewed And Found Negative. Neurological: Positive for: Other (numbness) Physical Exam - Physical Exam Appears: Well, No Acute Distress Skin: Normal Color, Warm, Dry Eye(s): bilateral: Normal Inspection, PERRL, EOMI Nose: Normal Throat: Normal Neck: Normal Cardiovascular: Rhythm Regular Respiratory: Normal Breath Sounds Gastrointestinal/Abdominal: Normal Exam Back: Normal Inspection Extremity: Normal ROM, Other Neurological/Psych: Oriented x3, Normal Speech, Normal Cognition, Normal Cranial Nerves, No Cerebellar Signs, Normal Motor, Normal Sensation ED Course And Treatment - Laboratory Results Result Diagrams: 04/08/17 13:29 04/08/17 13:29 O2 Sat by Pulse Oximetry: 97 (RA) Pulse Ox Interpretation: Normal - Other Rad CXR X-Ray: Viewed By Me, Read By Radiologist Interpretation: HISTORY: weakness. COMPARISON: 03/12/2007. FINDINGS: LUNGS: No interval infiltrate. Left upper lobe granulomas-the largest 11 mm unchanged. Right horizontal coursing vessel versus minimal bandlike atelectasis - current-lung volumes more shallow than before. PLEURA: No significant pleural effusion identified, no pneumothorax apparent. CARDIOVASCULAR: Moderate cardiomegaly -unchanged.Pulmonary vascular mild congestion suggested. Shallow lung volumes accentuate vasculature crowding. OSSEOUS STRUCTURES: No significant abnormalities. VISUALIZED UPPER ABDOMEN: Normal. OTHER FINDINGS: None. IMPRESSION: No interval infiltrate shallow lung volumes. Left upper lobe granulomas. Cardiomegaly. Pulmonary vascular mild congestion probable. - CT Scan/US CT - Head Other Rad Studies (CT/US): Read By Radiologist, Radiology Report Reviewed CT/US Interpretation: PROCEDURE: CT HEAD WITHOUT CONTRAST. HISTORY: weakness. COMPARISON: Noncontrast head CT performed 03/12/17. TECHNIQUE: Axial computed tomography images were obtained through the head/brain without intravenous contrast. Radiation dose: Total exam DLP = 991.67 mGy-cm. This CT exam was performed using one or more of the following dose reduction techniques: Automated exposure control, adjustment of the mA and/or kV according to patient size, and/or use of iterative reconstruction technique. FINDINGS: HEMORRHAGE: No intracranial hemorrhage. BRAIN: Diffuse atrophy with prominence of the ventricles and sulci noted. No mass effect or edema. Scattered periventricular and subcortical white matter hypodensities, which are nonspecific, but often seen with chronic microvascular ischemic disease. Please note that MRI with diffusion imaging is more sensitive in the detection of acute ischemic event. VENTRICLES: No hydrocephalus. CALVARIUM: Unremarkable. PARANASAL SINUSES: Unremarkable as visualized. No significant inflammatory changes. MASTOID AIR CELLS: Extensive opacification/fluid within the left mastoid air cells. To lesser extent opacification of fluid noted within the right mastoid air cells. Correlate clinically for mastoiditis. OTHER FINDINGS: None. IMPRESSION: Generalized atrophy. Nonspecific white matter changes. Extensive opacification/fluid within the left mastoid air cells. To lesser extent opacification of fluid noted within the right mastoid air cells. Correlate clinically for mastoiditis. Medical Decision Making Medical Decision Making: ro intracranial, metabolic, infectious etiology - labs imaging pending. noted pt had extended hospital course with similar presentation. ekg sinus toshia [address] t wave changes no interval change 545: ct shows chronic mastoidits. eval by dr soares bedside, advise d/c with bactrim. case dicussed with dr marin, states pt can fu outpt with his office. case dicsused with ana rosa family independence case manager, arrangements made for pt eval. pt cleared pt for dc with walker. family independence case manager reached family for dc. pt verbalzies comfortable with dc. walker provided. Disposition - Disposition Referrals: Kevin Marin MD [Staff Provider] - Timmy Soares MD [Staff Provider] - Disposition: HOME/ ROUTINE Disposition Time: 17:38 Condition: STABLE Additional Instructions: please follow up outpt with specialists. return to er with worsening symptoms or concerns. Prescriptions: Sulfamethoxazole/Trimethoprim [Bactrim DS 800 mg-160 mg] 1 tab PO BID #20 tab Instructions: Paresthesia (ED), Mastoiditis (ED) Forms: [employer] (Greek) - Clinical Impression Clinical Impression: Paresthesias
[2017-04-08 13:36] LABS: BASO % 0.7 % (0.0-2.0); EOS # 0.1 K/uL (0.0-0.7); EOS % 1.3 % (0.0-4.0); HEMATOCRIT 43.5 % (35.0-51.0); LYMPH # 1.7 K/uL (1.0-4.3); LYMPH % 24.5 % (20.0-40.0); MEAN CELL VOLUME 92.6 fL (80.0-94.0); MEAN CORPUSCULAR HEMOGLOBIN 31.1 pg (27.0-31.0); MEAN CORPUSCULAR HGB CONC 33.6 g/dL (33.0-37.0); MEAN PLATELET VOLUME 10.8 fL (7.2-11.7); MONO # 0.4 K/uL (0.0-0.8); MONO % 6.4 % (0.0-10.0); NRBC % 0.1 % (0.0-2.0); RED CELL DISTRIBUTION WIDTH 13.6 % (11.5-14.5); WHITE BLOOD COUNT 6.9 K/uL (4.8-10.8)
[2017-04-08 13:44] LABS: INR 1.1
[2017-04-08 13:46] LABS: CHLORIDE 106 mmol/L (98-107); SODIUM 142 mmol/L (132-148)
[2017-04-08 13:47] LABS: POTASSIUM 3.9 mmol/L (3.6-5.2)
[2017-04-08 13:49] LABS: ALB/GLOB RATIO 1.2 (1.0-2.1); ALKALINE PHOSPHATASE 64 U/L (38-126); ALT/SGPT 28 U/L (21-72); AST/SGOT 25 U/L (17-59); BLOOD UREA NITROGEN 17 mg/dL (9-20); CALCIUM 10.3 mg/dl (8.6-10.4); CARBON DIOXIDE 25 mmol/L (22-30); GFR AFRICAN-AMERICAN > 60; GLUCOSE,RANDOM 89 mg/dL (75-110); TOTAL PROTEIN 6.7 g/dL (6.3-8.3)
[2017-04-08 14:03] LABS: RBC URINE 2 /hpf (0-3); URINE BACTERIA FEW (<OCC); URINE BILIRUBIN NEGATIVE (NEGATIVE); URINE BLOOD NEGATIVE (NEGATIVE); URINE COLOR Yellow (YELLOW); URINE GLUCOSE (UA) NORMAL (Normal); URINE KETONE NEGATIVE (NEGATIVE); URINE LEUKOCYTE ESTERASE 2+ Leu/uL (Negative); URINE PROTEIN NEGATIVE (NEGATIVE); WBC URINE 31 /hpf (0-5)
--- NOTE | 2017-04-08 14:04 | CT ---
PROCEDURE: CT HEAD WITHOUT CONTRAST. HISTORY: trauma COMPARISON: None available. TECHNIQUE: Axial computed tomography images were obtained through the head/brain without intravenous contrast. Radiation dose: Total exam DLP = 873.70 mGy-cm. This CT exam was performed using one or more of the following dose reduction techniques: Automated exposure control, adjustment of the mA and/or kV according to patient size, and/or use of iterative reconstruction technique. FINDINGS: HEMORRHAGE: No intracranial hemorrhage. BRAIN: Diffuse atrophy with prominence of the ventricles and sulci noted. No mass effect or edema. Thin curvilinear calcification is noted along the inner table, left frontal lobe (series 4, image 45). Scattered periventricular and subcortical white matter hypodensities, which are nonspecific, but often seen with chronic microvascular ischemic disease. Please note that MRI with diffusion imaging is more sensitive in the detection of acute ischemic event. VENTRICLES: No hydrocephalus. CALVARIUM: Unremarkable. PARANASAL SINUSES: Unremarkable as visualized. No significant inflammatory changes. MASTOID AIR CELLS: Unremarkable as visualized. No inflammatory changes. OTHER FINDINGS: Small frontal scalp hematoma. IMPRESSION: Small frontal scalp hematoma. No acute intracranial pathology identified. Generalized atrophy. Nonspecific white matter changes.
--- NOTE | 2017-04-08 14:08 | RAD ---
HISTORY: weakness COMPARISON: 03/12/2007 FINDINGS: LUNGS: No interval infiltrate. Left upper lobe granulomas-the largest 11 mm unchanged. Right horizontal coursing vessel versus minimal bandlike atelectasis - current-lung volumes more shallow than before PLEURA: No significant pleural effusion identified, no pneumothorax apparent. CARDIOVASCULAR: Moderate cardiomegaly -unchanged.Pulmonary vascular mild congestion suggested. Shallow lung volumes accentuate vasculature crowding OSSEOUS STRUCTURES: No significant abnormalities. VISUALIZED UPPER ABDOMEN: Normal. OTHER FINDINGS: None. IMPRESSION: No interval infiltrate shallow lung volumes Left upper lobe granulomas Cardiomegaly. Pulmonary vascular mild congestion probable.
[2017-04-08] MEDS ORDERED: Vancomycin 1 GM 1 GM/250 ML BAG IVPB ONE (14:17)
[2017-04-08] MEDS ORDERED: cefTRIAXone IV 1 gm in Dextros 50 ML IVPB ONE (15:00)
[2017-04-08 17:53] VITALS: BP 158/78; PULSE 58; TEMP 98.2
[2017-04-08 23:28] VITALS: O2SAT 97
--- NOTE | 2017-04-09 02:43 | CON ---
DATE: 04/08/2017 REASON FOR CONSULTATION: Dizziness. REQUESTING PHYSICIAN: . HISTORY OF PRESENT ILLNESS: This is a 71-year-old male with a one-month history of being off balance and dizziness. No vertigo. It is constant and mild in intensity. There is no hearing loss and no ringing in the ears. PAST MEDICAL HISTORY: As noted in the chart by me. MEDICATIONS: As noted in the chart by me. PHYSICAL EXAMINATION HEAD: Atraumatic and normocephalic. FACE: Good facial movements bilaterally. CONSTITUTIONAL: Well fed and well nourished. COMMUNICATION: Communicates well and appropriately. EXTERNAL NOSE: No masses. No lesions. No erythema. No edema. EARS: TM intact. There is no fluid behind them. No erythema and no edema of the ear canal. NOSE: Deviated septum. No masses. No lesions. No erythema. No edema. ORAL CAVITY/OROPHARYNX: No masses. No lesions. No erythema. No edema. NECK: Supple. THYROID: No thyromegaly. No goiter. LYMPH NODES: No lymphadenopathy of the neck. NEUROLOGIC: Awake, alert, and oriented x3. LABORATORY DATA: CT was reviewed by me. It shows some mild opacification of the left mastoid air cells. The middle ear space is clear on both sides. ASSESSMENT: 1. Feeling off balance. 2. Deviated septum. 3. Mild opacification of the left mastoid air cells, mastoiditis unlikely. RECOMMENDATIONS: Recommend antibiotic as an outpatient. Follow up with neurology. Timmy Soares MD
== END 2017-04-08 17:57 | disposition home or self-care (01) ==
LOC: C.ER 11:47
DX: R20.9 Unspecified disturbances of skin sensation (principal); I12.9 Hypertensive chronic kidney disease with stage 1 through stage 4 chronic kidney disease, or unspecified chronic kidney disease; N18.9 Chronic kidney disease, unspecified; Z87.891 Personal history of nicotine dependence
CPT/HCPCS: 70450; 71010; 80053; 81001; 84484; 85025; 85610; 85730; 96365; 96367; 97116; 97161; 97530; 99285; G8978; G8979; J0696; J7050

== ENCOUNTER 2017-07-12 00:26 | Emergency (ER) | payer OTHER ==
[2017-07-12 00:26] VITALS: BMI 38.0
[2017-07-12 00:38] VITALS: O2SAT 96
--- NOTE | 2017-07-12 00:59 | C.PDOC ---
History Of Present Illness Patient BIBA for evaluation- as per EMS, patient was c/o abdominal pain and constipation when they arrived. However patient denies abdominal pain, states he called 911 because he woke up and was unable to breathe through his nose and he became very nervous. He admits to nasal congestion and cold symptoms. He states since he arrived in ED, symptoms improved and he feels fine now. He denies fever, cough, chest pain, palpitations, nausea/vomiting/diarrhea, dysuria. Time Seen by Provider: 07/12/17 00:27 Chief Complaint (Nursing): GI Problem History Per: Patient, EMS History/Exam Limitations: no limitations Onset/Duration Of Symptoms: Other (ROO[employer] VINYL COATING) Current Symptoms Are (Timing): Better Severity: Mild Past Medical History Reviewed: Historical Data, Nursing Documentation, Vital Signs Vital Signs: Last Vital Signs Temp 99.2 F 07/12/17 01:56 Pulse 95 H 07/12/17 01:56 Resp 20 07/12/17 01:56 BP 120/80 07/12/17 01:56 Pulse Ox 96 07/12/17 03:22 - Medical History PMH: Arthritis (MILD ARTHRITIS), Benign Prostatic Hyperplasia, Gall Bladder Disease (CHOLELIATHIASIS), HTN, Kidney Stones, Chronic Kidney Disease Surgical History: Cholecystectomy, Tonsillectomy - [facility] Procedures CONTROL POSTOP PROST HEM (06/23/13) CYSTOGRAM NEC (06/23/13) CYSTOSCOPY NEC (06/23/13) INCISION OF PROSTATE (10/28/14) INSERT INDWELLING CATH (06/08/13) LAPAROSCOPIC CHOLECYSTECTOMY (07/25/14) OTHER LAPAROSCOPIC UMBILICAL HERNIORRHAPHY (07/25/14) OTHER SUPRAPUBIC CYSTOSTOMY (06/28/13) PACKED CELL TRANSFUSION (06/28/13) RETROGRADE PYELOGRAM (10/28/14) SUPRAPUBIC PROSTATECTOMY (06/28/13) TU BLADDER CLEARANCE (06/23/13) Family History: States: No Known Family Hx - Social History Hx Tobacco Use: No Hx Alcohol Use: Yes Hx Substance Use: No - Immunization History Hx Tetanus Toxoid Vaccination: No Hx Influenza Vaccination: No Hx Pneumococcal Vaccination: No Review Of Systems Except As Marked, All Systems Reviewed And Found Negative. Constitutional: Negative for: Fever, Chills ENT: Positive for: Nose Congestion (unable to breathe through nose ) Cardiovascular: Negative for: Chest Pain, Palpitations Respiratory: Positive for: Shortness of Breath. Negative for: Cough, SOB with Excertion, Wheezing Gastrointestinal: Positive for: Constipation. Negative for: Nausea, Vomiting, Abdominal Pain, Diarrhea Genitourinary: Negative for: Dysuria, Hematuria Physical Exam - Physical Exam Appears: Well, Non-toxic, No Acute Distress Skin: Normal Color, Warm, Dry, No Rash Eye(s): bilateral: Normal Inspection Nose: No Epistaxis, Other (rhinorrhea ) Oral Mucosa: Moist Neck: Normal, Supple Cardiovascular: Rhythm Regular (mildly tachycardic ) Respiratory: Normal Breath Sounds, No Rales, No Rhonchi, No Wheezing Gastrointestinal/Abdominal: Bowel Sounds, Soft, No Tenderness, Other (large obese abdomen) Neurological/Psych: Oriented x3 ED Course And Treatment ECG: Interpreted By Me, Viewed By Me (sinus tachycardia 101 bpm, left axis deviation, PVC, RBBB, no acute ST changes - RBBB morphology seen on previous EKG 06/18/17) ECG Interpretation: No Acute Changes O2 Sat by Pulse Oximetry: 96 (RA) Pulse Ox Interpretation: Normal - Radiology CXR: Interpreted by Me, Viewed By Me CXR Interpretation: Yes: No Acute Disease, Other (left sided nodule seen on prior CXR). No: Infiltrates - Other Rad abdomen Xrays X-Ray: Interpreted by Me, Viewed By Me (large amoung of stool, no air fluid level) Progress Note: EKG, Obstructive series, accucheck ordered and reviewed. Reevaluation Time: 02:30 Reassessment Condition: Improved (Patient reassessed, is resting comfortably and states he feels well. He denies SOB, chest pain, palpitations, abdominal pain, nausea/vomiting. Vitals are WNL, and patient is comfortable being discharged home. Rxs for colace and magnesium citrate given. Patient instructed drink plenty of water and increase fiber, and to follow up with PMD in 1-2 days. He understands he should return to ED if symptoms worsen.) Disposition Counseled Patient/Family Regarding: Studies Performed, Diagnosis, Need For Followup, Rx Given - Disposition Referrals: [facility] at [facility] [Outside] Disposition: HOME/ ROUTINE Disposition Time: 02:30 Condition: STABLE Additional Instructions: FOLLOW UP IN THE MEDICAL CLINIC IN 1-2 DAYS RETURN TO ER IF SYMPTOMS WORSEN DRINK PLENTY OF WATER AND INCREASE FIBER IN YOUR DIET SEGUIMIENTO EN LA HUMAA MDICA EN 1-2 LEVINE VOLVER A ER SI LOS SNTOMAS EMPEORAN SANTI ABUNDANTE AGUA E INCREMENTA LA FIBRA EN TUTTLE DIETA Prescriptions: Docusate [Colace] 100 mg PO DAILY #30 cap Magnesium Citrate [Citrate of Mag] 300 ml PO ONCE PRN #1 bottle PRN Reason: Constipation Instructions: Constipation (ED), High Fiber Diet (ED), Cold Symptoms (ED) Forms: [employer] (Niuean) Print Language: MAORI - PONell Present On Arrival: None - Clinical Impression Clinical Impression: Nasal congestion, Constipation
[2017-07-12 01:12] VITALS: RESP 20
[2017-07-12 01:56] VITALS: BP 120/80; PULSE 95; TEMP 99.2
--- NOTE | 2017-07-12 09:38 | RAD ---
PROCEDURE: CHEST RADIOGRAPH, 1 VIEW HISTORY: eval COMPARISON: Comparison is made to 06/18/2027 FINDINGS: LUNGS: Again seen is high density nodule at the left upper lung measures approximately 1 centimeter. No evidence of significant interval change in the lungs noted since the previous exam. The assessment is suboptimal due to portable technique and patient's body habitus. PLEURA: No pneumothorax or pleural fluid seen. CARDIOVASCULAR: Normal. OSSEOUS STRUCTURES: No significant abnormalities. VISUALIZED UPPER ABDOMEN: Normal. OTHER FINDINGS: None. IMPRESSION: No evidence of significant interval change in the lungs. Re- demonstrated of approximately 1 centimeter nodule at the left upper lung.
--- NOTE | 2017-07-12 10:50 | RAD ---
HISTORY: constipation, distension COMPARISON: Comparison is made with 10/28/2014 FINDINGS: BOWEL: Havk-oa-voaifkoe constipation is noted. No radiographic evidence of small bowel obstruction. BONES: Normal. OTHER FINDINGS: Surgical clips are noted at the right upper abdomen suggestive of prior cholecystectomy. IMPRESSION: [id number] constipation. No radiographic evidence of free air or small bowel obstruction.
--- NOTE | 2017-07-15 12:49 | CARD ---
APPROVED REPORT EKG Measurement Heart [id number] <Conclusion> Sinus tachycardia with occasional premature ventricular complexes and fusion complexes Possible Left atrial enlargement Left axis deviation Right bundle branch block Abnormal ECG
== END 2017-07-12 06:55 | disposition home or self-care (01) ==
LOC: C.ER 00:26
DX: R09.81 Nasal congestion (principal); K59.00 Constipation, unspecified; N18.9 Chronic kidney disease, unspecified; I12.9 Hypertensive chronic kidney disease with stage 1 through stage 4 chronic kidney disease, or unspecified chronic kidney disease; M19.90 Unspecified osteoarthritis, unspecified site

== ENCOUNTER 2017-07-16 06:15 | Inpatient (IN) | payer OTHER ==
[2017-06-18 11:37] VITALS: BMI 38.0
[2017-07-16] MEDS ORDERED: Remifentanil 1 mg/3 ml Vial IV ONE (07:26)
[2017-07-16] MEDS ORDERED: Propofol 10 mg/ml 1,000 MG/100 ML VIAL ONE ×2 (07:27)
[2017-07-16] MEDS ORDERED: Propofol 10 mg/ml Inj (20 ML) ONE (07:34)
[2017-07-16] MEDS ORDERED: Bupivacaine HCl 0.5% PF (10 ml) Inj ONE ×2 (07:34)
[2017-07-16] MEDS ORDERED: Lidocaine 2% w Epi 1:100,000 Inj IJ ONE (07:34)
[2017-07-16] MEDS ORDERED: ceFAZolin IV 1 gm in Dextrose 1 GM/50 ML BAG IVPB ONE (07:34)
[2017-07-16] MEDS ORDERED: Midazolam 2 MG/2 ML VIAL ONE (07:34)
[2017-07-16] MEDS ORDERED: Bacitracin Ointment 30 GM TUBE ONE (07:34)
[2017-07-16] MEDS ORDERED: Thrombin Topical 5,000 Int Units Spray Kit ONE (07:34)
[2017-07-16] MEDS ORDERED: Absorbable Gelatin Sponge Size 100 ONE (07:34)
[2017-07-16] MEDS ORDERED: Succinylcholine Chloride 20 mg/ml Syr (5 ml) IV ONE (07:36)
[2017-07-16] MEDS ORDERED: Lactated Ringer's 1,000 ML IV ONE (10:03)
--- NOTE | 2017-07-16 10:10 | PCM.SURG1 ---
Surgeon's Initial Post Op Note - Surgeon's Notes Surgeon: funmilayo Cyber Instructor: lucio Type of Anesthesia: General Endo Pre-Operative Diagnosis: hnp c45 Operative Findings: hnp c4/5+ Post-Operative Diagnosis: same Operation Performed: acdf c4/5 Specimen/Specimens Removed: disc Estimated Blood Loss: EBL {In ML}: 25 Blood Products Given: N/A Drains Used: No Drains Post-Op Condition: Good Date of Surgery/Procedure: 07/16/17 Time of Surgery/Procedure: 10:10
[2017-07-16] MEDS ORDERED: Potassium Ch 20mEq in D5-1/2NS 1,000 ML IV SCH (10:45)
[2017-07-16] MEDS ORDERED: Morphine 4 MG/ML VIAL IV SCH (12:00)
--- NOTE | 2017-07-16 12:00 | RAD ---
PROCEDURE: Intraoperative fluoroscopy HISTORY: CERVICAL DISC DISPLACEMENT COMPARISON: None available TECHNIQUE: Intraoperative fluoroscopy was provided for cervical spine surgery total time of fluoroscopy was 10.1 seconds. FINDINGS: A single fluoroscopic spot film is submitted. This is on file for review. IMPRESSION: Fluoroscopy provided.
[2017-07-16 14:59] VITALS: RESP 16
[2017-07-16 17:28] VITALS: BP 133/84; PULSE 74; TEMP 98.8; O2SAT 96
--- NOTE | 2017-07-17 00:52 | OP ---
PROCEDURE DATE: 07/16/2017 PREOPERATIVE DIAGNOSIS: Cervical disk herniation, C4-5. POSTOPERATIVE DIAGNOSIS: Cervical disk herniation, C4-5. SURGEON: Juan Warren MD NEUROPSYCHIATRIST: Efren Gonzalez MD OPERATIVE PROCEDURE: Anterior cervical discectomy and fusion, placement of intervertebral device, placement of anterior locking plate, harvesting local bone marrow for graft. DESCRIPTION OF PROCEDURE: The patient was brought to the operating room, intubated appropriately, head kept in neutral position. C-arm fluoroscopy, SSEP and EMG potentials were monitored throughout the case. Electrodiagnostic studies were stable throughout. After prepping and draping, a horizontal incision was made through the midline to the right over what was believed to be the C4-5 interspace. This was taken through the subcuticular tissue. The platysma muscle was divided in the direction of the muscle plane and an avascular plane was developed bringing this down to the vertebral body. A spinal needle was placed at what was thought to be C4-5. We verified this on C-arm fluoroscopy. The disk space was then marked and the electrocautery was used to elevate the longus colli muscles from the bodies of C4 and C5 bilaterally. The Trimline retractor was placed horizontally and the spinal needle was then replaced in the disk space verifying again on C-arm fluoroscopy that we are at the correct location. At this point, a 15-blade was used to incise the disk space and disk material was removed in piecemeal fashion. The disk space iron pourer was then employed to further expose the disk space and the operating microscope was then brought in to aid in illumination and magnification. We continued to remove disk material using a combination of curettes and pituitaries and we came upon the posterior longitudinal ligament, which was easily divided with a 1-mm Kerrison and the posterior longitudinal ligament was a bit in the way in the extent of the disk space. Foraminotomies were performed and the passed circumferentially around the interspace making certain that all neural elements were thoroughly decompressed. At this point, the depth and the height of the disk space was measured and a 4-mm Bengal cage by [employer] was chosen. A needle was placed into the C5 vertebral body and an appropriate amount of bone marrow was aspirated, placed on a CONFORM Cube, which was then placed within the Bengal cage followed by and then the endplates were decorticated off the disk space using the rasp and the intervertebral device was then inserted and countersunk. A Uniplate by [employer] was then chosen and under direct C-arm fluoroscopy, we verified the location of the intervertebral device and then proceeded to place two 12-mm screws, one in C4, one in C5 under C-arm fluoroscopy for placement of the anterior locking plate. After fully securing the screws and making certain that the construct looked optimal, the locking plates were then tightened and torqued. The wound was then thoroughly irrigated. Hemostasis was meticulous. The wound was then re-approximated, 3-0 Vicryl for the platysma muscle and deep subcuticular, then a 4-0 Monocryl running subcuticular suture was placed, Dermabond was placed over that and the soft collar over that. The patient was then awoken from anesthesia, found to be moving all extremities, taken to recovery room in stable condition. Blood loss approximately 50 mL or less. Patient tolerated the procedure well. All counts were correct. No transfusions given. Specimen was disk material, C4-5. Juan Warren MD
== END 2017-07-16 17:11 | disposition home or self-care (01) | DRG 865 ==
LOC: C.9S 06:15
PROVIDERS: ADMIT Neurological Surgery; ATTEND Neurological Surgery
PROC: 07DS3ZZ Extraction of Vertebral Bone Marrow, Percutaneous Approach (ICD-10-PCS; 2017-07-16)
PROC: 0RG10A0 Fusion of Cervical Vertebral Joint with Interbody Fusion Device, Anterior Approach, Anterior Column, Open Approach (ICD-10-PCS; principal; 2017-07-16 07:45)
PROC: 0RT30ZZ Resection of Cervical Vertebral Disc, Open Approach (ICD-10-PCS; 2017-07-16 07:45)
DX: M50.221 Other cervical disc displacement at C4-C5 level (principal)